=== PATIENT | female | born 1960 | race Caucasian/White ===

== ENCOUNTER 2022-11-28 22:07 | Emergency (ER) | payer OTHER ==
[2022-11-28 22:14] VITALS: BMI 26.9
[2022-11-29 00:31] VITALS: BP 117/79; PULSE 72; RESP 16; TEMP 97.8
== END 2022-11-29 00:55 | disposition home or self-care (01) ==
LOC: JER 22:07
DX: L70.0 Acne vulgaris (principal)
CPT/HCPCS: 74019-TC-FY; 99283-25